=== PATIENT | female | born 1935 ===

== ENCOUNTER 2022-02-23 09:53 | Emergency (ER) | payer OTHER ==
[~2022-02-23] VITALS: Ht 167.6 cm; Wt 113.4 kg
[2022-02-23 10:45] LABS: Basophils # (auto) 0 10 ^3/uL (0-0.2); Basophils % (auto) 0.1 % (0.0-2.0); Eosinophils # (auto) 0 10 ^3/uL (0-0.8); Eosinophils % (auto) 0.5 % (0.0-7.0); Hematocrit 34.1 % (36.0-46.0); Hemoglobin 11.2 g/dL (12.2-16.2); Lymphocytes % (auto) 9.2 % (10.0-50.0); Mean Corpuscular Hemoglobin 30.7 pg (28.0-32.0); Mean Corpuscular Hgb Conc. 32.9 g/dL (32.0-36.0); Mean Corpuscular Volume 93.2 fL (80.0-100.0); Monocytes # (auto) 0.7 10 ^3/uL (0-1.3); Monocytes % (auto) 7.1 % (0.0-12.0); Neutrophils # (auto) 8.7 10 ^3/uL (1.6-8.6); Neutrophils % (auto) 83.1 % (37.0-80.0); Red Blood Cells 3.66 10^6/uL (4.0-5.20); Red Cell Distribution Width 15.8 % (11.8-14.3); White Blood Cell 10.5 10^3/uL (4.4-10.8)
[2022-02-23 11:02] LABS: Albumin 1.9 g/dL (3.4-5.0); Magnesium 2.1 mg/dL (1.6-2.6); Potassium 3.4 mmol/L (3.5-5.1)
[2022-02-23 11:07] LABS: BUN/Creatinine Ratio 25.1; Bilirubin, Total 0.6 mg/dL (0.2-1.0); Total Protein 6.5 g/dL (6.4-8.2)
[2022-02-23] MEDS ORDERED: POTASSIUM EFFERVESENT TAB 25 MEQ PO ONE (11:45)
[2022-02-23] MEDS ORDERED: SODIUM CHLORIDE 0.9% 1,000 ML IV ONE (12:30)
[2022-02-23] MEDS ORDERED: ACETAMINOPHEN 325 MG TAB PO ONE (13:30)
[2022-02-23 14:31] LABS: Urine Bacteria FEW /hpf (None Seen); Urine Blood Negative /uL (Negative); Urine Hyaline Cast FEW /lpf (0 - 2); Urine WBC <1 /hpf (0 - 5)
[2022-02-23] MEDS ORDERED: MORPHINE SULFATE INJ 2 MG/ml SYRG IV ONE (16:30)
[2022-02-23 17:06] VITALS: BP 103/53
== END 2022-02-23 17:22 | disposition short-term general hospital (02) ==
LOC: EDBD 09:53 → ER 10:10
DX: R53.1 Weakness (principal); E87.6 Hypokalemia; E43 Unspecified severe protein-calorie malnutrition; E11.9 Type 2 diabetes mellitus without complications; Z68.41 Body mass index [BMI] 40.0-44.9, adult; Z20.822 Contact with and (suspected) exposure to COVID-19
CPT/HCPCS: 36415; 71045; 80053; 81001; 83735; 84484; 85025; 87426; 93005; 96361; 96374; 99285; J2270; J7030